=== PATIENT | female | born 1980 | race Caucasian/White ===

== ENCOUNTER 2017-11-07 11:51 | Emergency (ER) | payer BC ==
[~2017-11-07] VITALS: Ht 160 cm; Wt 95.7 kg
[~2017-11-07 11:51] MED LIST: CLONAZEPAM1 MG; DILAUDID4 MG; INDOCIN25 MG PO; VALIUM10 MG
[2017-11-07] MEDS ORDERED: ZYPREXA20 MG PO (12:19)
[2017-11-07] MEDS ORDERED: ABILIFY30 MG PO (12:19)
[2017-11-07] MEDS ORDERED: ZYPREXA15 MG PO (12:19)
[2017-11-07] MEDS ORDERED: KLONOPIN2 MG PO (12:20)
[2017-11-07] MEDS ORDERED: COGENTIN2 MG PO (12:21)
[2017-11-07] MEDS ORDERED: LAMICTAL25 MG PO (12:22)
[2017-11-07 13:00] LABS: APPEARANCE CLOUDY ((CLEAR)); BILIRUBIN NEGATIVE; BLOOD NEGATIVE; COLOR YELLOW ((YELLOW)); GLUCOSE (STRIP) NEGATIVE; KETONES NEGATIVE; LEUKOCYTES LARGE; NITRITE POSITIVE; PROTEIN (STRIP) NEGATIVE; SPECIFIC GRAVITY 1.009 (1.000-1.030); UROBILINOGEN 0.2 MG/DL (0.2-1.0)
[2017-11-07 13:06] LABS: BASOPHIL (%) 0.4 % (0-1); EOSINOPHIL (%) 0.3 % (0-5); HEMATOCRIT 38.4 % (36.0-46.0); HEMOGLOBIN 12.8 G/DL (11.9-15.5); IMMATURE GRANULOCYTE (%) 0.2 % (0.0-0.7); LYMPHOCYTE (%) 25.9 % (15-42); LYMPHOCYTE COUNT 2.5 K/uL (1.0-2.8); MCH 28.8 PG (29.0-34.0); MCHC 33.3 G/DL (30.0-36.0); MCV 86.3 FL (83-99); MONOCYTE (%) 7.7 % (3-12); MONOCYTE COUNT 0.7 K/uL (0-0.8); NEUTROPHIL (%) 65.5 % (45-76); NEUTROPHIL COUNT 6.3 K/uL (1.8-6.4); PLATELET COUNT 391 K/uL (156-360); RBC DIS.WIDTH-CV 14.4 % (11.8-14.6); RBC DIS.WIDTH-SD 45.3 % (39-53); RED BLOOD COUNT 4.45 M/uL (3.80-5.20); WHITE BLOOD COUNT 9.6 K/uL (4.1-10.2)
[2017-11-07 13:07] LABS: BACTERIA 3+ /HPF; EPITHELIAL CELLS 2+ /HPF; HYALINE CASTS 0-5 /LPF; MUCUS TRACE /LPF
[2017-11-07] MEDS ORDERED: CLONIDINE HCL0.2 MG PO (13:10)
[2017-11-07 13:12] LABS: COCAINE NEGATIVE (150 ng/mL); PHENCYCLIDINE NEGATIVE (25 ng/mL); THC CANNABINOIDS NEGATIVE (50 ng/mL)
[2017-11-07 13:13] LABS: AMPHETAMINE NEGATIVE (500 ng/mL); BARBITURATES NEGATIVE (200 ng/mL); BENZODIAZEPINES NEGATIVE (150 ng/mL); BUPRENORPHINE NEGATIVE (10 ng/mL); METHADONE NEGATIVE (200 ng/mL); METHAMPHETAMINE NEGATIVE (500 ng/mL); OPIATES (MORPHINE) NEGATIVE (100 ng/mL); OXYCODONE NEGATIVE (100 ng/mL); PROPOXYPHENE NEGATIVE (300 ng/mL); TRICYCLIC ANTIDEPRESSANTS NEGATIVE (300 ng/mL)
[2017-11-07 13:15] LABS: CHLORIDE 109 mEq/L (99-109); POTASSIUM 3.7 mEq/L (3.7-5.4); SODIUM 142 mEq/L (136-147)
[2017-11-07 13:17] LABS: GLUCOSE 96 mg/dL (70-99)
[2017-11-07 13:20] LABS: SERUM ETHYL ALCOHOL < 10 mg/dL
[2017-11-07 13:21] LABS: CREATININE 0.8 mg/dL (0.6-1.3); GFR ESTIMATE (CALCULATED) > 59 mL/min/; UREA NITROGEN (BUN) 9 mg/dL (9-23)
[2017-11-07] MEDS ORDERED: CIPRO500 MG PO (13:32)
[2017-11-07 13:39] VITALS: BP 136/81
== END 2017-11-07 13:46 | disposition home or self-care (01) ==
LOC: EME 11:51
PROVIDERS: Emergency Medicine
DX: F41.9 Anxiety disorder, unspecified (principal); F32.9 Major depressive disorder, single episode, unspecified; N39.0 Urinary tract infection, site not specified; Z88.2 Allergy status to sulfonamides; F17.200 Nicotine dependence, unspecified, uncomplicated
CPT/HCPCS: 80048; 81003; 85025; 90839; 99281; 99284; G0480

== ENCOUNTER 2017-11-22 17:06 | Emergency (ER) | payer BC ==
[~2017-11-22] VITALS: Ht 160 cm; Wt 97.2 kg
[~2017-11-22 17:06] MED LIST changes: +ABILIFY30 MG PO; +CIPRO500 MG PO; +CLONIDINE HCL0.2 MG PO; +COGENTIN2 MG PO; +KLONOPIN2 MG PO; +LAMICTAL25 MG PO; +ZYPREXA15 MG PO; +ZYPREXA20 MG PO
[2017-11-22 17:08] VITALS: BP 109/67
== END 2017-11-22 18:16 | disposition left against medical advice (07) ==
LOC: EME 17:06 → EXP 17:06
DX: M54.9 Dorsalgia, unspecified (principal); Z53.21 Procedure and treatment not carried out due to patient leaving prior to being seen by health care provider
CPT/HCPCS: 99281; 99282

== ENCOUNTER 2018-01-20 11:42 | Inpatient (IN) | payer BC ==
[~2018-01-20] VITALS: Ht 160 cm; Wt 84.0 kg
[2018-01-20 12:32] LABS: BASOPHIL (%) 0.5 % (0-1); EOSINOPHIL (%) 0.4 % (0-5); HEMATOCRIT 32.9 % (36.0-46.0); HEMOGLOBIN 10.8 G/DL (11.9-15.5); IMMATURE GRANULOCYTE (%) 0.3 % (0.0-0.7); LYMPHOCYTE (%) 23.8 % (15-42); LYMPHOCYTE COUNT 1.8 K/uL (1.0-2.8); MCH 26.3 PG (29.0-34.0); MCHC 32.8 G/DL (30.0-36.0); MONOCYTE (%) 7.6 % (3-12); MONOCYTE COUNT 0.6 K/uL (0-0.8); NEUTROPHIL (%) 67.4 % (45-76); NEUTROPHIL COUNT 5.1 K/uL (1.8-6.4); PLATELET COUNT 308 K/uL (156-360); RBC DIS.WIDTH-CV 15.8 % (11.8-14.6); RBC DIS.WIDTH-SD 45.6 % (39-53); RED BLOOD COUNT 4.11 M/uL (3.80-5.20); WHITE BLOOD COUNT 7.6 K/uL (4.1-10.2)
[2018-01-20 12:40] LABS: CHLORIDE 109 mEq/L (99-109); POTASSIUM 3.2 mEq/L (3.7-5.4); SODIUM 143 mEq/L (136-147)
[2018-01-20 12:42] LABS: GLUCOSE 100 mg/dL (70-99)
[2018-01-20 12:45] LABS: SERUM ETHYL ALCOHOL < 10 mg/dL
[2018-01-20 12:46] LABS: CREATININE 0.7 mg/dL (0.6-1.3); GFR ESTIMATE (CALCULATED) > 59 mL/min/; UREA NITROGEN (BUN) 6 mg/dL (9-23)
[2018-01-20 15:08] LABS: AMPHETAMINE NEGATIVE (500 ng/mL); BARBITURATES NEGATIVE (200 ng/mL); BENZODIAZEPINES NEGATIVE (150 ng/mL); BUPRENORPHINE NEGATIVE (10 ng/mL); COCAINE PRESUMPTIVE POSITIVE (150 ng/mL); METHADONE NEGATIVE (200 ng/mL); METHAMPHETAMINE NEGATIVE (500 ng/mL); OPIATES (MORPHINE) NEGATIVE (100 ng/mL); OXYCODONE NEGATIVE (100 ng/mL); PHENCYCLIDINE NEGATIVE (25 ng/mL); PROPOXYPHENE NEGATIVE (300 ng/mL); THC CANNABINOIDS PRESUMPTIVE POSITIVE (50 ng/mL); TRICYCLIC ANTIDEPRESSANTS NEGATIVE (300 ng/mL)
[2018-01-20 15:31] LABS: APPEARANCE CLOUDY ((CLEAR)); BILIRUBIN NEGATIVE; BLOOD LARGE; GLUCOSE (STRIP) NEGATIVE; KETONES 5; LEUKOCYTES NEGATIVE; NITRITE POSITIVE; PROTEIN (STRIP) 100; SPECIFIC GRAVITY 1.019 (1.000-1.030); UROBILINOGEN 0.2 MG/DL (0.2-1.0)
[2018-01-20 15:38] LABS: COLOR BROWN ((YELLOW))
[2018-01-20 15:59] LABS: BACTERIA 3+ /HPF; EPITHELIAL CELLS NONE SEEN /HPF; MUCUS NONE SEEN /LPF; RED BLOOD CELLS TNTC /HPF (0-5); WHITE BLOOD CELLS 0-5 /HPF (0-5)
[2018-01-20 16:13] VITALS: BP 114/67
[2018-01-21 07:37] VITALS: BP 117/56
[2018-01-21 16:18] VITALS: BP 126/70
[2018-01-22 07:58] VITALS: BP 91/54
[2018-01-22] MEDS ORDERED: LAMICTAL100 MG PO (09:42)
[2018-01-22] MEDS ORDERED: LAMICTAL25 MG PO (09:42)
[2018-01-22] MEDS ORDERED: GEODON40 MG PO (09:42)
== END 2018-01-22 11:10 | disposition home or self-care (01) | DRG 885 ==
LOC: EME 11:42 → 1WEST 13:58 → EDOF 13:58 → ENRESERV 15:16 → 1WEST 16:03
PROVIDERS: Emergency Medicine
DX: F31.9 Bipolar disorder, unspecified (principal); F17.200 Nicotine dependence, unspecified, uncomplicated; F12.90 Cannabis use, unspecified, uncomplicated; F60.3 Borderline personality disorder; F43.10 Post-traumatic stress disorder, unspecified; F14.10 Cocaine abuse, uncomplicated; F41.0 Panic disorder [episodic paroxysmal anxiety]; S51.811A Laceration without foreign body of right forearm, initial encounter
CPT/HCPCS: 80048; 81003; 84999; 85025; 90839; 99281; 99284; G0480; Q0177

== ENCOUNTER 2018-02-04 13:21 | Emergency (ER) | payer BC ==
[~2018-02-04] VITALS: Ht 160 cm; Wt 86.1 kg
[~2018-02-04 13:21] MED LIST changes: +GEODON40 MG PO; +LAMICTAL100 MG PO
[2018-02-04 13:58] VITALS: BP 128/87
[2018-02-04] MEDS ORDERED: PROAIR RESPICL90 MCG IH (23:11)
[2018-02-04] MEDS ORDERED: PREDNISONE50 MG PO (23:11)
== END 2018-02-04 15:29 | disposition left against medical advice (07) ==
LOC: EME 13:21
DX: R05 Cough (principal); R50.9 Fever, unspecified; R06.02 Shortness of breath; Z53.21 Procedure and treatment not carried out due to patient leaving prior to being seen by health care provider

== ENCOUNTER 2018-02-04 19:19 | Emergency (ER) | payer BC ==
[~2018-02-04] VITALS: Ht 160 cm; Wt 84.1 kg
[2018-02-04] MEDS ORDERED: PROAIR RESPICL90 MCG IH (23:11)
[2018-02-04] MEDS ORDERED: PREDNISONE50 MG PO (23:11)
[2018-02-04 23:20] VITALS: BP 136/93
== END 2018-02-04 23:20 | disposition home or self-care (01) ==
LOC: EME 19:19
DX: J40 Bronchitis, not specified as acute or chronic (principal); Z88.2 Allergy status to sulfonamides; F17.200 Nicotine dependence, unspecified, uncomplicated
CPT/HCPCS: 71046; 71250; 94644; 99281; 99285; J7512

== ENCOUNTER 2018-02-17 08:18 | Emergency (ER) | payer BC ==
[~2018-02-17] VITALS: Ht 157.5 cm; Wt 80.1 kg
[~2018-02-17 08:18] MED LIST changes: +PREDNISONE50 MG PO; +PROAIR RESPICL90 MCG IH
[2018-02-17 08:24] VITALS: BP 115/90
[2018-02-17] MEDS ORDERED: NEOMYCIN-POLYMY10 M1 LEFT EAR (08:28)
[2018-02-17] MEDS ORDERED: NAPROSYN500 MG PO (08:28)
== END 2018-02-17 08:45 | disposition home or self-care (01) ==
LOC: EME 08:18
DX: H60.92 Unspecified otitis externa, left ear (principal); F41.9 Anxiety disorder, unspecified; F31.9 Bipolar disorder, unspecified; Z87.891 Personal history of nicotine dependence; Z88.2 Allergy status to sulfonamides; Z88.5 Allergy status to narcotic agent; Z88.6 Allergy status to analgesic agent
CPT/HCPCS: 99281; 99283